=== PATIENT | male | born 1960 | race Caucasian/White ===

== ENCOUNTER 2021-03-31 09:52 | Emergency (ER) | payer MEDICAID, SELFPAY ==
[2021-03-31 09:58] VITALS: BP 130/76; PULSE 70; O2SAT 100
[2021-03-31 10:00] VITALS: BP 172/84; PULSE 57; RESP 16; TEMP 36.3; BMI 20.3
--- NOTE | 2021-03-31 10:07 | ED.ANXIETY ---
HPI - Anxiety General Chief Complaint: General Medical Stated Complaint: HEROIN USE,FEELS ANXIOUS, NO NARCAN GIVEN PER EMS Time Seen by Provider: 03/31/21 10:02 Source: patient and EMS Mode of arrival: EMS Limitations: no limitations History of Present Illness HPI narrative: 60 y/o male with history of opioid use disorder on Suboxone presents to the ER from [facility] reporting not feeling well and feeling anxious after he snorted a bad bag of heroin this morning at 8am. He reports feeling restless, anxious and having intermittent bone pains in his right arm. He last took his Suboxone last night. He reports ongoing IN heroin use 3-4 bags at a time and on those days he does not take his Suboxone. He reports the bag he used this morning was from a new dealer. His GONZALEZ at [facility] was positive for Fentanyl per EMS. MD complaint: anxiety Onset (ago): hour(s) Symptoms: sense of impending doom and muscle cramps Severity: moderate Quality: intermittent Place: home History of similar episodes: Yes Provoking factors: other (fentanyl use) Relieving factors: nothing Exacerbating factors: nothing Associated symptoms: denies other symptoms Related Data Allergies Allergy/AdvReac Type Severity Reaction Status Date / Time No Known Allergies Allergy Verified 03/31/21 10:07 [No Known Allergies*] Review of Systems Review of Systems: Constitutional: No Fever, No Chills ENT/Mouth: No sore throat, No Rhinorrhea, No Swallowing Difficulty Cardiovascular: No Chest Pain, No SOB, No Orthopnea, No Edema Respiratory: No Cough, No Sputum, No Wheezing, No dyspnea Gastrointestinal: No Nausea, No Vomiting, No Diarrhea, No abdominal Pain Genitourinary: No Dysuria, No Urinary Frequency, No Hematuria Musculoskeletal: + joint pain, No Myalgias Skin: No Skin Lesions, No rash Neuro: No Weakness, No Numbness, No Dizziness, No Headache Psych: + Anxiety/Panic, No Depression Heme/Lymph: No Bruising, No Lymphadenopathy Endocrine: No Polyuria, No Polydipsia PMFSH Past Medical History Medical History (Updated 03/31/21 @ 10:40 by ANGIE Gomez) Schizophrenia Social History Social History Advance Directives: No Advance Directives Information Provided: Yes Physical Exam Vital Signs: Vital Signs: Last Vital Signs Temp 97.3 F 03/31/21 10:00 Pulse 57 03/31/21 10:00 Resp 16 03/31/21 10:00 BP 172/84 H 03/31/21 10:00 BMI result Body Mass Index 20.3 Appearance: Alert. Oriented X3. No acute distress. Intermittently falls asleep Eyes: Pupils 2mm, equal and round. ENT: Pharynx with moist mucus membranes, poor dentition. Neck: Normal inspection. Neck supple. CVS: Normal heart rate and rhythm. Pulses normal. Respiratory: No respiratory distress. Breath sounds normal. Abdomen: Soft and nontender. +BS x4 Skin: Skin warm and dry. Normal skin color. Normal skin turgor. No rashes. Extremities: No lower extremity edema. Normal ROM of all 4 extremities. No track ramirez Neuro: Oriented X 3. No motor deficit. No sensory deficit. Ambulates with steady gait Course Course Course Narrative: 60 y/o male with opioid use disorder on Suboxone who currently still uses intranasal heroin presents to the ER after snorting a bag of heroin at 08:00 from a new dealer. His urine test at [facility] showed Fentanyl. He is anxious intermittently pacing. At times he is lethargic and falling asleep. He is protecting his airway with no need for Narcan at this time. Will repeat U tox and monitor closely in the ER. Reevaluation(s) Reevaluation #1: U tox positive for fentanyl and marijuana. He was given IM Toradol for reports of arm pain. He would like to be discharged home. success coach spoke with the patient and he is declining detox at this time. He admitted to taking Suboxone after using intranasal heroin today. He was counseled on proper use of Suboxone and risk of precipitating withdrawal with current use of ongoing heroin. Again he does not want to go to a detox program. He would like to go home. Stable for DC with ongoing management by the [facility] MDM - Anxiety Lab Data Labs: Lab Results 03/31/21 Range/Units 10:57 Urine Opiates Screen Not Detected (Not Detect) Urine Fentanyl Screen POSITIVE H (Not Detect) Ur Barbiturates Screen Not Detected (Not Detect) Ur Phencyclidine Scrn Not Detected (Not Detect) Ur Amphetamines Screen Not Detected (Not Detect) U Benzodiazepines Scrn Not Detected (Not Detect) Urine Cocaine Screen Not Detected (Not Detect) U Marijuana (THC) Screen POSITIVE H (Not Detect) Critical Care Time Critical Care Time Critical Care Time: No Discharge Plan Discharge Clinical Impression: Opioid use disorder Fentanyl adverse reaction Qualifiers: Encounter type: initial encounter Qualified Code(s): T40.415A - Adverse effect of fentanyl or fentanyl analogs, initial encounter Patient Disposition: Home, Self-Care Instructions: Opioid Use Disorder (ED) Additional Instructions: DO NOT USE HEROIN - IT CAN KILL YOU Continue your Suboxone as prescribed
[2021-03-31 11:28] LABS: Amphetamine Screen Urine Not Detected (Not Detect); Barbiturates, Urine Not Detected (Not Detect); Benzodiazepines Screen Urine Not Detected (Not Detect); Cannabinoid Screen Urine POSITIVE (Not Detect); Cocaine Screen Urine Not Detected (Not Detect); Fentanyl, urine POSITIVE (Not Detect); Opiate Screen Urine Not Detected (Not Detect); Phencyclidine Screen Urine Not Detected (Not Detect)
--- NOTE | 2021-03-31 11:31 | MHC.RECOVSUP ---
? Reason for consult:Recovery Support o Current location: [facility] o Identified substance use concern:Heroin - Withdrawal - Seeking ATS (detox) - Support ? Intervention: o Community resources provided o Harm reduction discussion ? Plan: o Referral to CCC o Bed search in progress to o Patient to follow up with [facility] after discharge ? Additional information: Offered patient detox,...pt. refused. Had a harm reduction discussion, and Mat discussion also.
[2021-03-31] MEDS: Ketorolac Tromethamine 30 MG/ML VIAL IM (12:05)
[2021-03-31 12:34] VITALS: BP 154/74; PULSE 60; RESP 16
== END 2021-03-31 12:37 | disposition home or self-care (01) ==
PROVIDERS: Physician Assistant; Emergency Provider Emergency Medicine; PCP Internal Medicine
DX: F11.20 Opioid dependence, uncomplicated (principal); Z71.51 Drug abuse counseling and surveillance of drug abuser; Z79.899 Other long term (current) drug therapy
CPT/HCPCS: 80307; 96372; 99283; 99284; J1885

== ENCOUNTER 2022-12-27 17:09 | Emergency (ER) | payer MEDICAID, SELFPAY ==
[2022-12-27 17:18] VITALS: BP 115/78; BP 138/86; PULSE 134; PULSE 72; RESP 20; TEMP 36.6; O2SAT 97; O2SAT 98
--- NOTE | 2022-12-27 18:12 | PC.NURSE ---
Addendum entered by Alberto Fallon RN 12/27/22 18:24: security called for pattern changer and repairer Original Note: found unresponsive on porch by family. Narcan by [employer], admits snorting 1 bag heroin. unintentional overdose, denies si/hi. a+o x4, denies pain. vss.
--- NOTE | 2022-12-27 18:40 | ED.OVERDOSE ---
HPI - Overdose General Chief Complaint: Overdose Stated Complaint: opioid Od, 4mg narcan given Time Seen by Provider: 12/27/22 17:27 Source: patient Mode of arrival: EMS Limitations: no limitations History of Present Illness HPI Narrative: Patient comes to the emergency room complaining of an accidental overdose. Patient states that he takes methadone, today he used 1 bag of heroin and accidentally overdosed. Bystanders and police department gave the patient intranasal Narcan. Patient on arrival to the emergency room calm, cooperative, awake. Patient states this was an accident, denies suicidal or homicidal ideation. Related Data Allergies Allergy/AdvReac Type Severity Reaction Status Date / Time No Known Allergies Allergy Verified 12/27/22 17:37 [No Known Allergies*] Review of Systems Review of Systems: Constitutional : No Weight loss, No Fever, No Chills, No Night Sweats, No Fatigue, No Malaise ENT/Mouth : No Hearing loss, No Ear Pain, No Nasal Congestion, No Sinus Pain, No Hoarseness, No sore throat, No Rhinorrhea, No Swallowing Difficulty Eyes: No Eye Pain, No Swelling, No Redness, No Foreign Body, No Discharge, No Vision Changes Cardiovascular : No Chest Pain, No SOB, No Dyspnea on Exertion, No Orthopnea, No Edema, No Palpitations Respiratory : No Cough, No Sputum, No Wheezing, No Smoke Exposure, No Dyspnea Gastrointestinal : No Nausea, No Vomiting, No Diarrhea, No Constipation, No abdominal Pain, No Hematochezia, No Melena Genitourinary : no irregular bleeding, No Dysuria, No Urinary Frequency, No Hematuria, No Urinary Incontinence, No Urgency, No Flank Pain, No Urinary Flow Changes, No Hesitancy Musculoskeletal : No joint pain, No Myalgias, No Joint Swelling Skin : No Skin Lesions, No rash Neuro : No Weakness, No Numbness, No Paresthesias, No Loss of Consciousness, No Dizziness, No Headache Psych : No Anxiety/Panic, No Depression, No SI/HI/AH/VH, admits to using heroin today Heme/Lymph: No Bruising, No Bleeding,No Lymphadenopathy Endocrine : No Polyuria, No Polydipsia, No Temperature Intolerance PMFSH Past Medical History Medical History (Updated 12/27/22 @ 18:42 by Promise Valles MD) Heroin overdose Schizophrenia Social History Social History Advance Directives: No Advance Directives Information Provided: No Physical Exam Vital Signs: Vital Signs: Last Vital Signs Temp 97.8 F 12/27/22 17:18 Pulse 72 12/27/22 17:18 Resp 20 12/27/22 17:18 BP 115/78 12/27/22 17:18 Pulse Ox 98 12/27/22 17:18 O2 Del Method Room Air 12/27/22 17:18 BMI result Body Mass Index 20.0 Const: Other: Appearance: Alert. Oriented X3. No acute distress. Eyes: Pupils equal, round and reactive to light. ENT: Pharynx normal. Neck: Normal inspection. Neck supple. No lymph nodes noted. No crepitus CVS: Normal heart rate and rhythm. Pulses normal. Normal S1 and S2 Respiratory: No respiratory distress. Breath sounds normal. No Wheezing. No rales Abdomen: Soft and nontender. No rigidity. No distention. Skin: Skin warm and dry. Normal skin color. Normal skin turgor. Extremities: No lower extremity edema. No Lacerations. No Rash Neuro: Oriented X 3. No motor deficit. No sensory deficit. Moving all extremities. No slurred speech. CN 2 through 12 grossly intact Psych: calm, cooperative, normal affect Medical Decision Making Medical Decision Making MDM Narrative: -patient is awake, alert and oriented x3, no acute distress -patient has normal vitals, oxygen saturation 98% on room air -patient declined CARE/SUDe consult -patient was given home Narcan -after hours of observation, patient feels well, remains asymptomatic. Differential Diagnosis Differential Diagnoses: The differential diagnosis associated with the presentation includes (Having overdose, alcohol intoxication, depression) Admission/Observation Consideration of admission/observation: Escalation of care including admission/observation considered (Admission/observation considered to be seen by the care team consider, patient declined) Critical Care Time Critical Care Time Critical Care Time: Yes Total Critical Care Time: 45 Attestation: I have personally provided critical care time. Time includes review of lab data, radiology results, discussion with consultants, and monitoring for potential decompensation. Intervention performed as documented. Discharge Plan Discharge Clinical Impression: Drug overdose Patient Disposition: Home, Self-Care Instructions: Adult Overdose (ED) Additional Instructions: Please follow-up with your primary care physician tomorrow. If you have any worsening or new symptoms, please return to the emergency room or call 911
[2022-12-27] MEDS: Naloxone HCl Nasal TAKE HOME 4 MG SPRAY 8 MG NOSTRILALT (19:00)
[2022-12-27 19:05] VITALS: PULSE 88; RESP 15; O2SAT 98
--- NOTE | 2022-12-27 19:08 | MHC.RECOVSUP ---
Attempted to meet with pt in ED18H who was here for OD, however pt refused services and left before T/W was able to meet with him.
== END 2022-12-27 19:04 | disposition home or self-care (01) ==
PROVIDERS: Emergency Provider Emergency Medicine
DX: T40.1X1A Poisoning by heroin, accidental (unintentional), initial encounter (principal); Y92.9 Unspecified place or not applicable; Z71.51 Drug abuse counseling and surveillance of drug abuser
CPT/HCPCS: 99284

== ENCOUNTER 2024-05-15 14:23 | Outpatient (REF) | payer MEDICAID, SELFPAY ==
--- NOTE | ~2024-05-15 | XR_ITS ---
EXAMINATION: XR KNEE 4 OR MORE VIEWS LEFT HISTORY: chronic severe left knee pain, unable to weight bear COMPARISON: There are no prior studies available for comparison. FINDINGS: Four views of the left knee are submitted. Osseous mineralization is normal. There is no fracture or dislocation. The joint spaces are preserved. The soft tissues are unremarkable. XR/XR knee LT 4V IMPRESSION: Unremarkable examination of the left knee. Electronically signed by: Asim Rodriguez MD 05/15/2024 03:22 PM MICKIE
[2024-05-15 16:12] LABS: MANUAL DIFF FLAG NO
--- OUTSIDE RECORDS SUMMARY | 2024-05-15 16:24 | XMS_ITS | Encounter Summary ---
Author Organization [facility] Address [address] [place] [address] Care Team Providers Care Sand Shoveler Name Role Phone Unavailable Primary Care Provider Unavailabl e Reason for Referral * Consultation (Urgent) - Pending Review Specialty Diagnoses / Procedures Referred By Zarina t Referred To Contact Orthopaedic Surgery Diagnoses Pain and swelling of left knee Adela Murphy MD [address] [place] [id number] Phone: tel: fax: Referral ID Status Reason Start Date Expiration Date Visits Requested Visits Authorized [id number] Pending Review Specialty Services Required 05/15/2024 05/15/2025 1 1 Encounter Details Date Type Department Care Team (Late st Contact Info) Description 05/15/2024 2:00 PM EST Office Visit [facility] [address] [place] [phone] Adela Murphy MD [address], [place] [phone] Pain and swelling of left knee (Primary Dx) Social History Tobacco Use Types Packs/Day Years Used Date Smoking Tobacco: Never Assessed Sex and Gender Information Value Date Recorded Sex Assigned at Male 02/22/2022 10:35 AM EDT Legal Sex Male 10:35 AM EDT Gender Identity Male 02/22/2022 10:35 AM EDT Sexual Orientation Straight 02/22/2022 10 :35 AM EDT documented as of this encounter Last Filed Vital Signs Vital Sign Reading Time Taken Comments Blood Pressure 112/75 05/15/2024 2:12 PM EST Pulse 91 05/15/2024 2:12 PM EST Temperature 36.6 ??C (97.9 ??F) 05/15/2024 2:12 PM ES T Respiratory Rate 16 05/15/2024 2:12 PM EST Oxygen Saturation 99% 05/15/2024 2:12 PM EST Inhaled Oxygen Concentration - - Weight 59 kg (130 lb) 05/15/2024 2:12 PM EST Height - - Body Mass Index 19.93 04/08/2021 12:12 AM EST documented in this encounter Progress Notes * Patriciaharley Remy - 05/15/2024 2:00 PM EST Subjective Patient ID: Matt Corey is a 63 y.o. male who presents to walk in clinic for left knee pain. Pt reports about 5 months ago he injured his left knee and about 2 months ago he re-injured the same knee, and has tried supportive care without any relief. He reports he has been struggling to bear weight and has been trying to limit movement and support himself on household objects as he tries toget around the house. Denies any wounds or skin breaks. Review of Systems Constitutional: Negative for fever and unexpected weight change. Respiratory: Negative for shortness of breath. Cardiovascular: Negative for chest pain. Gastrointestinal: Negative for abdominal pain. Genitourinary: Negative for difficulty urinating. Musculoskeletal: Positive for arthralgias and joint swelling. Objective Visit Vitals BP 112/75 (BP Location: Right arm, Patient Position: Sitting, BP Cuff Size: Adult) Pulse 91 Temp 97.9 ??F (36.6 ??C) (Temporal) Resp 16 Body mass index is 19.93 kg/m??. Physical Exam Musculoskeletal: Right knee: Normal. Left knee: Deformity (bony deformity, arthritic appearance) and effusion present. Decreased range of motion (cannot bedn past 90 degrees). Tenderness present. Comments: Struggling to bear weight on LLE. Neurological: Mental Status: He is alert. Problem List Items Addressed This Visit Pain and swelling of left knee - Primary Likely arthralgic versus infectious. Differential includes, internal knee injury, arthritic changes, gout, and muscle strain. -ordered XR of right knee 05/15/24 -ordered uric acid, CBC, Sed rate, Lyme disease antibody 05/15/24 -prescribed ibuprofen 800 MG for pain -referred to Orthopedics 05/15/24 -given crutches to assist with weight bearing Relevant Medications ibuprofen 800 MG tablet Other Relevant Orders Uric acid CBC auto differential Sed Rate by Modified Westergren Lyme Disease Ab with Reflex to Blot (IgG, IgM) XR Knee 4+ Views Left Referral to Orthopaedic Surgery -No evidence of acute disease process. Symptoms mild. -Treatment discussed in plan above. -ER precautions discussed. -Seek medical attention for worsening symptoms. I, Sobeida Alberto, am serving as a scribe to document services personally performed by Dr. Nguyen, based on the patient's response to questions by provider and providers statements to me. documented in this encounter Miscellaneous Notes * Assessment & Plan Note - Sobeida Alberto - 05/15/2024 2:10 PM ESTAssociated Problem(s): Pain and swelling of left knee Likely arthralgic versus infectious. Differential includes, internal knee injury, arthritic changes, gout, and muscle strain. -ordered XR of right knee 05/15/24 -ordered uric acid, CBC, Sed rate, Lyme disease antibody 05/15/24 -prescribed ibuprofen 800 MG for pain -referred to Orthopedics 05/15/24 -given crutches to assist with weight bearing documented in this encounter Plan of Treatment Upcoming Encounters Date Type Department Care Team (Late st Contact Info) Description 08/10/2024 10:00 AM EDT Office Visit [facility] [address] [place] [address] Kaci Bueno MD [address] [place] [address] Scheduled Orders Name Type Priority Associated Diagnoses Orde r Schedule Uric acid Lab Routine Pain and swelling of left knee Expected: 05/15/2024 (Approximate), Expires: 05/15/2025 CBC auto differential Lab Routine Pain and swelling of left knee Expected: 05/15/2024 (Approximate), Expires: 05/15/2025 Sed Rate by Modified Westergren Lab Routine Pain and swelling of left knee Expected: 05/15/2024, Expires: 05/15/2025 Lyme Disease Ab with Reflex to Blot (IgG, IgM) Lab Routine Pain and swelling of left knee Expected: 05/15/2024, Expires: 05/15/2025 Scheduled Referrals Name Type Priority Associated Diagnoses Order Schedule Referral to Orthopaedic Surgery Outpatient Referral Urgent Pain and swelling of left knee Expected: 05/15/2024 (Approximate), Expires: 05/15/2025 documented as of this encounter Procedures Procedure Name Priority Date/Time Associated Diagnosis Comments XR KNEE 4+ VIEWS LEFT Routine 05/15/2024 2:24 PM EST Pain and swelling of left knee documented in this encounter Results * XR Knee 4+ Views Left (05/15/2024 2:24 PM EST) Anatomical Region Laterality Modality Lower Extremities, Knee Left Radiogra phic Imaging 05/15/2024 2:24 PM EST Narrative 05/15/2024 3:24 PM EST ?[facility] ?[address] ?[place] [address] ?XRay Report ? Signed ? Patient: Matt Corey ?MR#: [id number] ?? 2 ? : 1960 ?Acct:[id number] ? Age/Sex: 63 / M ?ADM Date: 05/15/24 ? Loc: HO.HHCX ? Attending Dr: Adela Murphy MD ? Ordering Physician: Adela Murphy MD ?? Date of Service: 05/15/24 ?? Procedure(s): XR knee LT 4V ?? Accession Number(s): [id number] ? cc: Adela Murphy MD ? EXAMINATION: ??XR KNEE 4 OR MORE VIEWS LEFT ? HISTORY: chronic severe left knee pain, unable to weight bear ? COMPARISON: There are no prior studies available for comparison. ? FINDINGS: ? Four views of the left knee are submitted. ??Osseous mineralization is ?? normal. ??There is no fracture or dislocation. ??The joint spaces are ?? preserved. ??The soft tissues are unremarkable. ? XR/XR knee LT 4V ?? IMPRESSION: ? Unremarkable examination of the left knee. ? Electronically signed by: ??Asim Rodriguez MD ??05/15/2024 03:22 PM EST ?? RP ? Dictated By: ?Asim Rodriguez MD ? Signed By: ?<Electronically signed by Asim Rodriguez MD in OV> ?05/15/24 1522 ? DD/ 1424 ? TD/TT: 05/15/24 1500 ? Microfilm Operator: ? Procedure Note Donotmichelleter, Image - 05/15/[address] [address] XRay Report Signed Patient: Matt Corey OMR#: [id number] 2 : 1960Acct:[id number] Age/Sex: 63 / MADM Date: 05/15/24 Loc: HO.HHCX Attending Dr: Adela Murphy MD Ordering Physician: Adela Murphy MD Date of Service: 05/15/24 Procedure(s): XR knee LT 4V Accession Number(s): [id number] cc: Adela Murphy MD EXAMINATION: XR KNEE 4 OR MORE VIEWS LEFT HISTORY: chronic severe left knee pain, unable to weight bear COMPARISON: There are no prior studies available for comparison. FINDINGS: Four views of the left knee are submitted. Osseous mineralization is normal. There is no fracture or dislocation. The joint spaces are preserved. The soft tissues are unremarkable. XR/XR knee LT 4V IMPRESSION: Unremarkable examination of the left knee. Electronically signed by: Asim Rodriguez MD 05/15/2024 03:22 PM EST Dictated By: Asim Rodriguez MD Signed By: <Electronically signed by Asim Rodriguez MD in OV> 05/15/24 1522 DD/ 1424 TD/TT: 05/15/24 1500 Microfilm Operator: Adela Murphy MD IMG XR PROCEDURES Final Re sult documented in this encounter Visit Diagnoses Diagnosis Pain and swelling of left knee- Primary documented in this encounter
--- OUTSIDE RECORDS SUMMARY | 2024-05-15 16:24 | XMS_ITS | Encounter Summary ---
Author Organization [facility] Address [address] [place] [address] Care Team Providers Care Stick Inserter Name Role Phone Unavailable Primary Care Provider Unavailabl e Reason for Visit * Reason Onset Date Comments New Patient appt. 05/15/2024 Encounter Details Date Type Department Care Team (Late st Contact Info) Description 05/15/2024 Telephone [facility] [address] [place], [place] [phone] Pérez Kumar MD [address] [place], [place] [phone] New Patient appt. Social History Tobacco Use Types Packs/Day Years Used Date Smoking Tobacco: Never Assessed Sex and Gender Information Value Date Recorded Sex Assigned at Male 02/22/2022 10:35 AM EDT Legal Sex Male 10:35 AM EDT Gender Identity Male 02/22/2022 10:35 AM EDT Sexual Orientation Straight 02/22/2022 10 :35 AM EDT documented as of this encounter Miscellaneous Notes * Telephone Encounter - Santa Scott - 05/15/2024 3:12 PM EST Outgoing call to pt to book DINING ROOM SERVER appt. Patient booked for 08/10/[address] Bueno. No medical conditions reported. Appt reminder sent via text and mail. * Telephone Encounter - Santa Scott - 05/15/2024 3:12 PM EST ----- Message from Adela Murphy MD sent at 05/15/2024 2:09 PM EST ----- Please place on new pt list. documented in this encounter Plan of Treatment Upcoming Encounters Date Type Department Care Team (Late st Contact Info) Description 08/10/2024 10:00 AM EDT Office Visit [facility] [address] [place], [place] [phone] Kaci Bueno MD [address] [place] [address] documented as of this encounter Visit Diagnoses Not on filedocumented in this encounter
[2024-05-15 16:36] LABS: Basophils Percent Auto 0.6 % (0-2); Eosinophils Absolute Auto 0.1 X10*3/uL (0.0-0.4); Eosinophils Percent Auto 1.4 % (0-4); Hemoglobin 13.9 g/dl (14.0-18.0); Imm Gran Abs Auto 0.03 X10*3/uL (0.00-0.03); Imm Gran Pct Auto 0.5 % (0.0-0.4); Lymphocytes Absolute Auto 1.3 X10*3/uL (1.2-4.9); Lymphocytes Percent Auto 20.2 % (20-40); Mean Corpuscular HGB Conc 33.9 g/dl (31.0-36.0); Mean Corpuscular Hemoglobin 33.2 pg (27.0-33.0); Mean Corpuscular Volume 97.9 fL (80.0-98.0); Mean Platelet Volume 11.9 fL (9.4-12.4); Monocytes Absolute Auto 0.5 X10*3/uL (0.1-1.2); Monocytes Percent Auto 7.1 % (2-11); Neutrophils Absolute Auto 4.5 x10*3/uL (2.0-8.3); Neutrophils Percent Auto 70.2 % (45-73); Platelet Count 245 X10*3/uL (160-400); Red Blood Count 4.19 X10*6/uL (4.60-5.80); Red Cell Distribution Width 13.6 % (11.0-16.0); White Blood Count 6.4 X10*3/uL (4.8-10.8)
[2024-05-15 16:52] LABS: Uric Acid 5.9 mg/dL (3.4-7.0)
[2024-05-15 17:41] LABS: Erythrocyte Sedimentation Rate 7 MM/HR (0-15)
== END 2024-05-15 14:24 | disposition home or self-care (01) ==
LOC: HO.HHCX 14:23
PROVIDERS: Visit Provider Family Medicine
DX: M25.562 Pain in left knee (principal); M25.462 Effusion, left knee
CPT/HCPCS: 36415; 73564; 84550; 85025; 85652; 86617; 86618

== ENCOUNTER → 2024-05-15 14:24 | Outpatient (BNV) | payer MEDICAID, SELFPAY | PROVIDERS: Visit Provider Radiology Diagnostic Radiology | DX: M25.562 Pain in left knee (principal) | CPT/HCPCS: 73564 ==

== ENCOUNTER 2024-05-15 14:44 | Outpatient (REF) | payer MEDICAID, SELFPAY | END 2024-05-15 14:45 | disposition home or self-care (01) | LOC: HO.HHCL 14:44 | PROVIDERS: Visit Provider Family Medicine | DX: Z13.89 Encounter for screening for other disorder (principal) ==

== ENCOUNTER 2024-06-27 11:12 | Outpatient (AMB) | payer MEDICAID, SELFPAY ==
--- NOTE | 2024-06-27 11:14 | MHC.OFFVIS ---
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 The patient states that he injured his knee approximately 6 months ago. He twisted his knee and had acute onset of pain when he fell. Since that time his symptoms have gotten worse. He has failed the last 6 weeks of conservative treatment which has included Tylenol, anti-inflammatory medicines, heat, topical creams and a knee brace. He states that his left knee will give out several times per day. He has tried physical therapy exercises which aggravated his pain. Allergies No Known Allergies [No Known Allergies*] Allergy (Verified 06/27/24 11:18) Medication List - Last Reconciled 06/27/24 by Michael Payton MD No Known Home Meds [facility] Medical History (Updated 06/27/24 @ 11:34 by Michael Payton MD) Heroin overdose Schizophrenia Physical Exam Vital Signs: BMI result Body Mass Index 21.9 Const Other: Well-nourished well-developed very friendly male awake alert and oriented x3 in no acute distress Extrem Other: Bilateral lower extremity examination shows good capillary refill, no skin lesions noted, normal sensation light touch Left knee examination shows a minimal effusion, minimal crepitus with range of motion, tenderness along his medial joint line, positive Dillon's test, no instability Results Reviewed Results Reviewed: Standing full weight-bearing x-rays of the patient's left knee show mild diffuse joint space narrowing, no acute bony abnormalities Assessment & Plan Assessment & Plan (1) Tear of medial meniscus of left knee: Code(s): S83.242A - Other tear of medial meniscus, current injury, left knee, initial encounter Category: Medical Plan Mr. Corey presents with progressively worsening left knee pain and mechanical symptoms most likely due to a medial meniscus tear. Thus, I will send the patient for an MRI of his left knee for further evaluation. I will see him back once the MRI is completed to discuss the findings and treatment options. Feel free to call me at any time should questions regarding his orthopedic management arise. I spent 22 minutes in reviewing the patient's records and imaging studies, seeing the patient and documenting in the medical record. Orders: Orders MR knee LT wo con Today S83.242A - Other tear of medial meniscus, current injury, left knee, initial encounter Coding Level of Care Code New Pt Level 3 (15739) Complex EM visit Add On G2211 Diagnoses Tear of medial meniscus of left knee S83.242A
[2024-06-27 11:17] VITALS: BMI 21.9
--- OUTSIDE RECORDS SUMMARY | 2024-06-27 13:29 | XMS_ITS | Clinical Summary ---
Author Organization [employer] Address [address] [place] [address] Care Team Providers Care Coach Wirer Name Role Phone Unavailable Primary Care Provider Unavailabl e Allergies No known active allergies Medications ibuprofen 800 MG tabletIndicatio ns:Pain and swelling of left knee Take 1 tablet (800 mg) by mouth every 8 (eight) hours if needed for moderate pain or fever. 30 tablet 5 06/14/19 25 Active Problems Problem Noted Date Diagnosed Date Pain and swelling of left knee 05/15/2024 Assessment & Plan (05/15/2024 2:10 PM EST): Likely arthralgic versus infectious. Differential includes, internal knee injury, arthritic changes, gout, and muscle strain. -ordered XR of right knee 05/15/24 -ordered uric acid, CBC, Sed rate, Lyme disease antibody 05/15/24 -prescribed ibuprofen 800 MG for pain -referred to Orthopedics 05/15/24 -given crutches to assist with weight bearing Encounters Date Type Department Care Team Description 05/15/2024 2:00 PM EST Office Visit [facility] [address] [place] [address] Adela Murphy MD Pain and swelling of left knee (Primary Dx) 05/15/2024 Telephone [facility] [address] [place] [address] Pérez Kumar MD New Patient appt. from Last 3 Months Social History Tobacco Use Types Packs/Day Years Used Date Smoking Tobacco: Never Assessed Sex and Gender Information Value Date Recorded Sex Assigned at Male 02/22/2022 10:35 AM EDT Legal Sex Male 10:35 AM EDT Gender Identity Male 02/22/2022 10:35 AM EDT Sexual Orientation Straight 02/22/2022 10 :35 AM EDT Last Filed Vital Signs Vital Sign Reading Time Taken Comments Blood Pressure 112/75 05/15/2024 2:12 PM EST Pulse 91 05/15/2024 2:12 PM EST Temperature 36.6 ??C (97.9 ??F) 05/15/2024 2:12 PM ES T Respiratory Rate 16 05/15/2024 2:12 PM EST Oxygen Saturation 99% 05/15/2024 2:12 PM EST Inhaled Oxygen Concentration - - Weight 59 kg (130 lb) 05/15/2024 2:12 PM EST Height 172 cm (5' 7.72 ) 04/08/2021 12:12 AM EST Body Mass Index 19.93 04/08/2021 12:12 AM EST Plan of Treatment Upcoming Encounters Date Type Department Care Team (Late st Contact Info) Description 08/10/2024 10:00 AM EDT Office Visit [facility] [address] [place] [address] Kaci Bueno MD [address] [place] [address] Health Maintenance Due Date Last Done Comments CT Colonography 1960 Colonoscopy 1960 Colorectal Cancer Screening 1960 Depression Screening 1960 FIT DNA/Cologuard 1962 FIT 1962 FOBT 1960 Lipid Panel 1960 SDOH Screening 1960 Sigmoidoscopy 1962 Alcohol/Substance Use Screening 1974 Tobacco Screening 1974 Hepatitis C Screening 1980 Pneumococcal Vaccine: 50+ Years (1 of 1 - PCV) 2012 Zoster Vaccines (1 of 2) 2012 DTaP/Tdap/Td Vaccines (1 - Tdap) 01/15/2019 01/14/2019 COVID-19 Vaccine (1 - 2023-2 5 season) 2023 Influenza Vaccine (#1) 2023 RSV Patients and Patients Aged 60 years or older (1 - 1-dose 75+ series) 2037 HIV Screening Completed 01/04/2020, 06/06/2019 HIB Vaccines Aged Out No longer eligi ble based on patient's age to complete this topic HPV Vaccines Aged Out No longer eligi ble based on patient's age to complete this topic Hepatitis A Vaccines Aged Out No long er eligible based on patient's age to complete this topic Hepatitis B Vaccines Aged Out No long er eligible based on patient's age to complete this topic IPV Vaccines Aged Out No longer eligi ble based on patient's age to complete this topic Meningococcal Vaccine Aged Out No varsha edidre eligible based on patient's age to complete this topic RSV under 20 months Aged Out No longe r eligible based on patient's age to complete this topic Rotavirus Vaccines Aged Out No longer eligible based on patient's age to complete this topic Procedures Procedure Name Priority Date/Time Associated Diagnosis Comments LYME DISEASE AB W/REFL TO BLOT (IGG, IGM) Routine 05/15/2024 2:47 PM EST Pain and swelling of left knee SED RATE BY MODIFIED WESTERGREN Routine 05/15/2024 2:47 PM EST Pain and swelling of left knee CBC WITH AUTO DIFFERENTIAL Routine 05/15/2024 2:47 PM EST Pain and swelling of left knee URIC ACID Routine 05/15/2024 2:47 PM EST Pain and swelling of left knee XR KNEE 4+ VIEWS LEFT Routine 05/15/2024 2:24 PM EST Pain and swelling of left knee HIV 1/2 ANTIGEN/ANTIBODY, FOURTH GENERATION W/RFL Routine 01/04/2020 9:51 AM EDT from Last 3 Months or Most Recently Relevant to Health Maintenance Results * Lyme Disease Ab with Reflex to Blot (IgG, IgM) (05/15/2024 2:47 PM EST) Lyme Antibody Screen <0.90 index [facility] Comment:Index Interpretation ----- < 0.90 Negative 0.90-1.09 Equivocal > 1.09 PositiveAs recommended by the Food and Drug Administration(FDA), all samples with positive or equivocalresults in a Borrelia burgdorferi antibody screenwill be tested using a blot method. Positive orequivocal screening test results should not beinterpreted as truly positive until verified as suchusing a supplemental assay (e.g., B. burgdorferi blot).The screening test and/or blot for B. burgdorferiantibodies may be falsely negative in early stagesof Lyme disease, including the period when erythemamigrans is apparent.THIS TEST WAS PERFORMED AT:[address] [place] [phone] FAJARDO MD Lyme Blot TNP [facility] 05/15/2024 2:47 PM EST 05/15/2024 4:05 PM EST Adela Murphy MD LAB BLOOD ORDERABLES Final Result [facility] [address] [place] [phone] * (ABNORMAL) CBC auto differential (05/15/2024 2:47 PM EST) White Blood Count 6.4 4.8 - 10.8 X10*3/uL [facility] Red Blood Count 4.19(L) 4.60 - 5.80 X10*6/uL [facility] Hemoglobin 13.9(L) 14.0 - 18.0 g/dl [facility] Hematocrit 41.0(L) 42.0 - 52.0 % [facility] Mean Corpuscular Volume 97.9 80.0 - 98.0 fL [facility] Mean Corpuscular Hemoglobin 33.2(H) 27.0 - 33.0 pg [facility] Mean Corpuscular HGB Conc 33.9 31.0 - 36.0 g/dl [facility] Red Cell Distribution Width 13.6 11.0 - 16.0 % [facility] Platelet Count 245 160 - 400 X10*3/uL [facility] Mean Platelet Volume 11.9 9.4 - 12.4 fL [facility] Neutrophils Percent Auto 70.2 45 - 73 % [facility] Imm Gran Pct Auto 0.5(H) 0.0 - 0.4 % [facility] Lymphocytes Percent Auto 20.2 20 - 40 % [facility] Monocytes Percent Auto 7.1 2 - 11 % [facility] Eosinophils Percent Auto 1.4 0 - 4 % [facility] Basophils Percent Auto 0.6 0 - 2 % [facility] NRBC Pct Auto 0.0 0.0 - 0.2 /100WBC [facility] Neutrophils Absolute Auto 4.5 2.0 - 8.3 x10*3/uL [facility] Imm Gran Abs Auto 0.03 0.00 - 0.03 X10*3/uL [facility] Lymphocytes Absolute Auto 1.3 1.2 - 4.9 X10*3/uL [facility] Monocytes Absolute Auto 0.5 0.1 - 1.2 X10*3/uL [facility] Eosinophils Absolute Auto 0.1 0.0 - 0.4 X10*3/uL [facility] Basophils Absolute Auto 0.0 0.0 - 0.2 X10*3/uL [facility] NRBC Abs Auto 0.000 0.0 - 0.012 X10*3/uL [facility] Blood Venous blood specimen / Unknown 05/15/2024 2:47 PM EST 05/15/2024 4:05 PM EST us Adela Murphy MD LAB BLOOD ORDERABLES Final Result [facility] [address] [place] [phone] * Sed Rate by Modified Jose Antonio (05/15/2024 2:47 PM EST) Erythrocyte Sedimentation Rate 7 0 - 15 MM/HR [facility] Comment:Patients with polycy themia and many hemoglobin abnormalitiesmay have depressed sed rates whereas patients with anemiamay have elevated sed rates. Blood Venous blood specimen / Unknown 05/15/2024 2:47 PM EST 05/15/2024 4:05 PM EST Adela Murphy MD LAB BLOOD ORDERABLES Final Result Performing Organization Address [facility] de Phone Number [facility] [address] [place] [phone] * Uric acid (05/15/2024 2:47 PM EST) Uric Acid 5.9 3.4 - 7.0 mg/dL [facility] Blood Venous blood specimen / Unknown 05/15/2024 2:47 PM EST 05/15/2024 4:05 PM EST Adela Murphy MD LAB BLOOD ORDERABLES Final Result Performing Organization Address [facility] de Phone Number [facility] [address] [place] [phone] * XR Knee 4+ Views Left (05/15/2024 2:24 PM EST) Anatomical Region Laterality Modality Lower Extremities, Knee Left Radiogra phic Imaging 05/15/2024 2:24 PM EST Narrative 05/15/2024 3:24 PM EST ?[facility] ?[address] ?[place] [address] ?XRay Report ? Signed ? Patient: Corey,Matt O ?MR#: [id number] ?? 2 ? : 1960 ?Acct:[id number] ? Age/Sex: 63 / M ?ADM Date: 01/21/25 ? Loc: HO.HHCX ? Attending Dr: Adela Murphy MD ? Ordering Physician: Adela Murphy MD ?? Date of Service: 05/15/24 ?? Procedure(s): XR knee LT 4V ?? Accession Number(s): [id number] ? cc: Adela Murphy MD ? EXAMINATION: [...] DD/ 1424 ? TD/TT: 05/15/24 1500 ? Sales Assistants [employer] Salespersons: ? Procedure Note Donotuseinterpreter, Image - 05/15/2024 [place] [address] XRay Report Signed Patient: Matt Corey OMR#: [id number] 2 : 1960Acct:[id number] Age/Sex: 63 / MADM Date: 05/15/24 Loc: HO.HHCX Attending Dr: Adela Murphy MD Ordering Physician: Adela Murphy MD Date of Service: 05/15/24 Procedure(s): XR knee LT 4V Accession Number(s): [id number] cc: Adela Murphy MD EXAMINATION: XR KNEE [...] by: Asim Rodriguez MD 05/15/2024 03:22 PM [facility] Dictated By: Asim Rodriguez MD Signed By: <Electronically signed by Asim Rodriguez MD in OV> 05/15/24 1522 DD/ 1424 TD/TT: 05/15/24 1500 [employer] Ass[employer]ants [employer] Salespers[employer]: us Adela Murphy MD IMG XR PROCEDURES Final Re sult * HIV 1/2 ANTIGEN/ANTIBODY,FOURTH GENERATION W/RFL (01/04/2020 9:51 AM EDT) HIV-1/2 ANTIGEN AND ANTIBODIES, 4TH GENERATION W/ REFLEX NON-REACT [facility] Comment: HIV-1 antigen and HIV-1/HIV-2 antibodies were not detected. There is no laboratory evidence of HIV infection. ?? PLEASE NOTE: This information has been disclosed to you from records whose confidentiality may be protected by state law. ??If your state requires such protection, then the state law prohibits you from making any further disclosure of the information without the specific written consent of the person to whom it pertains, or as otherwise permitted by law. A general authorization for the release of medical or other information is NOT sufficient for this purpose. ? For additional information please refer to http://[employer].RENTISH/faq/RFO618 (This link is being provided for informational/ educational purposes only.) ? The performance of this assay has not been clinically validated in patients less than 2 years old. ?? HIV-1/2 ANTIGEN AND ANTIBODIES, 4TH GENERATION W/ REFLEX NON-REACT [facility]ACT [facility] Comment: HIV-1 antigen and HIV-1/HIV-2 antibodies were not detected. There is no laboratory evidence of HIV infection. ?? PLEASE NOTE: This information has been disclosed to you from records whose confidentiality may be protected by state law. ??If your state requires such protection, then the state law prohibits you from making any further disclosure of the information without the specific written consent of the person to whom it pertains, or as otherwise permitted by law. A general authorization for the release of medical or other information is NOT sufficient for this purpose. ? For additional information please refer to http://[employer].RENTISH/faq/SAF463 (This link is being provided for informational/ educational purposes only.) ? The performance of this assay has not been clinically validated in patients less than 2 years old. ?? 01/04/2020 9:51 AM EDT Madison Mix MD LAB BLOOD ORDERABLES Final Result [facility] [address] from Last 3 Months or Most Recently Relevant to Health Maintenance Insurance [facility] [employer]
== END 2024-06-27 11:34 | disposition home or self-care (01) ==
PROVIDERS: Visit Provider Orthopaedic Surgery
DX: S83.242A Other tear of medial meniscus, current injury, left knee, initial encounter (principal)
CPT/HCPCS: 99203

== ENCOUNTER → 2024-06-27 11:12 | Outpatient (BNVA) | payer MEDICAID, SELFPAY | PROVIDERS: Visit Provider Orthopaedic Surgery | DX: S83.242A Other tear of medial meniscus, current injury, left knee, initial encounter (principal); W19.XXXA Unspecified fall, initial encounter; Y93.9 Activity, unspecified; Y92.9 Unspecified place or not applicable; Y99.9 Unspecified external cause status | CPT/HCPCS: 99202 ==

== ENCOUNTER → 2024-07-14 10:46 | Outpatient (BNV) | payer MEDICAID, SELFPAY | PROVIDERS: Visit Provider Radiology Diagnostic Radiology | DX: M23.222 Derangement of posterior horn of medial meniscus due to old tear or injury, left knee (principal) | CPT/HCPCS: 73721 ==

== ENCOUNTER 2024-07-14 10:58 | Outpatient (REF) | payer MEDICAID, SELFPAY ==
--- NOTE | ~2024-07-14 | MR_ITS ---
EXAMINATION: MRI LEFT KNEE WITHOUT CONTRAST HISTORY: S83.242A - Other tear of medial meniscus, current injury, left knee COMPARISON: Correlation is made with plain films of the left knee dated 05/15/2024. TECHNIQUE: Coronal T1 and fat-suppressed proton density, sagittal proton density and fat-suppressed proton density, and axial fat suppressed T2 weighted MR images of the left knee were obtained. FINDINGS: Bone marrow: Bone marrow signal intensity is mildly heterogeneous. Joint effusion: There is no significant joint effusion. Crandall's cyst: There is no Crandall's cyst. Articular cartilage: Intact Muscles/soft tissues: The visualized muscles demonstrate normal signal intensity. Anterior cruciate ligament: Intact Posterior cruciate ligament: Intact Medial collateral ligament: Intact Lateral collateral ligament: Intact Medial meniscus: There is a horizontally oriented linear focus of increased signal intensity within the posterior horn of the medial meniscus. This contacts the inferior joint surface, consistent with a tear. The anterior horn of the medial meniscus is intact. Lateral meniscus: Intact Flexor mechanism: The popliteus, gastrocnemius, and hamstring tendons are intact. Quadriceps tendon: Intact Patellar tendon: Intact Patellar retinacula: Intact MR/MR knee LT wo con IMPRESSION: Horizontal tear of the posterior horn of the medial meniscus. Electronically signed by: Asim Rodriguez MD 07/16/2024 08:29 AM EDT
--- OUTSIDE RECORDS SUMMARY | 2024-07-14 11:02 | XMS_ITS | Encounter Summary ---
Author Organization [facility] Address [address] [place] [address] Care Team Providers Care Collections Rep Name Role Phone Unavailable Primary Care Provider Unavailabl e Encounter Details Date Type Department Care Team (Late st Contact Info) Description 07/06/2024 Population Health Risk Score [facility] (C[facility]) Department [address] [phone] Provider, Population Health Generic Social History Tobacco Use Types Packs/Day Years Used Date Smoking Tobacco: Never Assessed Sex and Gender Information Value Date Recorded Sex Assigned at Male 02/22/2022 10:35 AM EDT Legal Sex Male 10:35 AM EDT Gender Identity Male 02/22/2022 10:35 AM EDT Sexual Orientation Straight 02/22/2022 10 :35 AM EDT documented as of this encounter Plan of Treatment Upcoming Encounters Date Type Department Care Team (Late st Contact Info) Description 08/10/2024 10:00 AM EDT Office Visit [facility] [address] [place] [address] Kaci Bueno MD [address] [place], [place] [phone] documented as of this encounter Visit Diagnoses Not on filedocumented in this encounter
== END 2024-07-14 10:59 | disposition home or self-care (01) ==
LOC: HO.MRI 10:58
PROVIDERS: Visit Provider Orthopaedic Surgery
DX: S83.242A Other tear of medial meniscus, current injury, left knee, initial encounter (principal)
CPT/HCPCS: 73721

== ENCOUNTER 2024-07-26 13:50 | Outpatient (AMB) | payer MEDICAID, SELFPAY ==
[2024-07-26 13:51] VITALS: BMI 21.9
--- NOTE | 2024-07-26 13:51 | A.OFFVIS_ITS ---
Vital Signs 07/26/24 13:51 Height 5 ft 7 in Weight 140 lb BMI 21.9 Intake Visit Reasons: Left knee pain Intake Note: Matt is a 63 year old male who presents with complaints of left knee pain. He describes his pain as sharp in nature. He did aggravate his left knee approximately 9 months ago. He has failed the last 3 months of conservative treatment which have included Tylenol, anti-inflammatory medicines, a home exercise program and physical therapy exercises. He denies any locking or giving way. He wishes to hold off on surgery if at all possible. Allergies No Known Allergies [No Known Allergies*] Allergy (Verified 07/26/24 13:55) Medication List - Last Reconciled 07/26/24 by Michael Payton MD No Known Home Meds [facility] Medical History (Updated 07/26/24 @ 14:20 by Michael Payton MD) Heroin overdose Schizophrenia Physical Exam Vital Signs: BMI result Body Mass Index 21.9 Const Other: Well-nourished well-developed very friendly male awake alert and oriented x3 in no acute distress Extrem Other: Bilateral lower extremity examination shows good capillary refill, no skin lesions noted, normal sensation light touch Left knee examination shows a minimal effusion, mild crepitus with range of motion, pain with range of motion, no instability Results Reviewed Results Reviewed: Standing full weight-bearing x-rays of the patient's left knee show mild diffuse joint space narrowing, subchondral sclerosis, no acute bony abnormalities Assessment & Plan Assessment & Plan (1) Left knee pain: Code(s): M25.562 - Pain in left knee (2) Osteoarthritis of left knee: Code(s): M17.12 - Unilateral primary osteoarthritis, left knee Category: Medical Plan Mr. Corey presents with left knee pain due to osteoarthritis. I had a lengthy discussion with the patient regarding the treatment options. He wishes to hold off on surgery for as long as possible. I agree with this plan. I will see whether or not the patient's insurance company will cover a viscosupplementation injection such as Durolane. I will see him back once the injection is available. I spent 21 minutes in reviewing the patient's records and imaging studies, seeing the patient and documenting in the medical record. Coding Level of Care Code Est Pt Level 3 (92780) Complex EM visit Add On G2211 Diagnoses Left knee pain M25.562 Osteoarthritis of left knee M17.12
--- OUTSIDE RECORDS SUMMARY | 2024-07-26 15:15 | XMS_ITS | Clinical Summary ---
Author Organization Related Content Database (RCDb) [facility] Address [address] [facility] 7t [place] [address] Care Team Providers Care Mechanical Development Engineer Name Role Phone Unavailable Primary Care Provider Unavailabl e Allergies No known active allergies Active Problems Problem Noted Date Diagnosed Date [...] Encounters Date Type Department Care Team Description 07/06/2024 Population Health Risk Score [facility] (C3) Department [address] [phone] Provider, Population Health Generic 05/15/2024 2:00 PM EST Office Visit [facility] [address] [place] [phone] Adela Murphy MD Pain and swelling of left knee (Primary Dx) 05/15/2024 Telephone [facility] [address] [place] [address] Pérez Kumar MD New Patient appt. from [...] Description 08/10/2024 10:00 AM EDT Office Visit [facility] [address] [place], [place] [phone] Kaci Bueno MD [address] [place], [place] [phone] Health Maintenance Due Date Last Done Comments [...] (1 - Tdap) 01/15/2019 01/14/2019 COVID-19 Vaccine ( - 2023-2 5 season) 2023 Influenza Vaccine [...] topic Meningococcal Vaccine Aged Out No varsha deidre eligible based on patient's age to complete [...] PM EST) Lyme Antibody Screen <0.90 index [facility] Comment:Index Interpretatio n ----- < 0.90 Negative 0.90-1.09 Equivocal > [...] when erythemamigrans is apparent.THIS TEST WAS PERFORMED AT:[facility] [address] [id number] FAJARDO MD Lyme Blot TNP [facility] 05/15/2024 2:47 PM EST 05/15/2024 4:05 PM EST Adela Murphy MD LAB BLOOD ORDERABLES Final Result [facility] [address] [place] [phone] * (ABNORMAL) CBC auto differential (05/15/2024 2:47 PM EST) White Blood Count 6.4 4.8 - 10.8 X10*3/uL [facility] Red Blood Count 4.19(L) 4.60 - 5.80 X10*6/uL [facility] Hemoglobin 13.9(L) 14.0 - 18.0 g/dl [facility] Hematocrit 41.0(L) 42.0 - 52.0 % [facility] Mean Corpuscular Volume 97.9 80.0 - 98.0 fL [facility] Mean Corpuscular Hemoglobin 33.2(H) 27.0 - 33.0 pg [facility] Mean Corpuscular HGB Conc 33.9 31.0 - 36.0 g/dl [facility] Red Cell Distribution Width 13.6 11.0 - 16.0 % [facility] Platelet Count 245 160 - 400 X10*3/uL [facility] Mean Platelet Volume 11.9 9.4 - 12.4 fL [facility] Neutrophils Percent Auto 70.2 45 - 73 % [facility] Imm Gran Pct Auto 0.5(H) 0.0 - 0.4 % [facility] Lymphocytes Percent Auto 20.2 20 - 40 % [facility] Monocytes Percent Auto 7.1 2 - 11 % [facility] Eosinophils Percent Auto 1.4 0 - 4 % [facility] Basophils Percent Auto 0.6 0 - 2 % [facility] NRBC Pct Auto 0.0 0.0 - 0.2 /100WBC [facility] Neutrophils Absolute Auto 4.5 2.0 - 8.3 x10*3/uL [facility] Imm Gran Abs Auto 0.03 0.00 - 0.03 X10*3/uL [facility] Lymphocytes Absolute Auto 1.3 1.2 - 4.9 X10*3/uL [facility] Monocytes Absolute Auto 0.5 0.1 - 1.2 X10*3/uL [facility] Eosinophils Absolute Auto 0.1 0.0 - 0.4 X10*3/uL [facility] Basophils Absolute Auto 0.0 0.0 - 0.2 X10*3/uL [facility] NRBC Abs Auto 0.000 0.0 - 0.012 X10*3/uL [facility] Blood Venous blood specimen / Unknown 05/15/2024 2:47 PM EST 05/15/2024 4:05 PM EST us Adela Murphy MD LAB BLOOD ORDERABLES Final Result [facility] [address] [place] [phone] * Sed Rate by Modified Jose Antonio (05/15/2024 2:47 PM EST) Erythrocyte Sedimentation Rate 7 0 - 15 MM/HR [facility] Comment:Patients with polycy themia and many hemoglobin abnormalitiesmay have depressed sed rates whereas patients with anemiamay have elevated sed rates. Blood Venous blood specimen / Unknown 05/15/2024 2:47 PM EST 05/15/2024 4:05 PM EST Adela Murphy MD LAB BLOOD ORDERABLES Final Result Performing Organization Address [facility] Co de Phone Number [facility] [address] [place] [phone] * Uric acid (05/15/2024 2:47 PM EST) Uric Acid 5.9 3.4 - 7.0 mg/dL [facility] Blood Venous blood specimen / Unknown 05/15/2024 2:47 PM EST 05/15/2024 4:05 PM EST Aedla Murphy MD LAB BLOOD ORDERABLES Final Result Performing Organization Address [facility] de Phone Number [facility] [address] [place] [phone] * XR Knee 4+ Views Left (05/15/2024 2:24 PM EST) Anatomical Region Laterality Modality Lower Extremities, Knee Left Radiogra phic Imaging 05/15/2024 2:24 PM EST Narrative 05/15/2024 3:24 PM EST ?[facility] ?[address] ?[place] [address] ?XRay Report ? Signed ? Patient: Corey,Matt O ?MR#: [id number] ?? 2 ? : 1960 ?Acct:[id number] ? Age/Sex: 63 / M ?ADM Date: 01/21/25 ? Loc: HO.HHCX ? Attending Dr: Adela Murphy MD ? Ordering Physician: Adela Murphy MD ?? Date of Service: 05/15/24 ?? Procedure(s): XR knee LT 4V ?? Accession Number(s): [id number] ? cc: Adela Murphy MD ? EXAMINATION: [...] ??Asim Rodriguez MD ??05/15/2024 03:22 PM EST ? Dictated By: ?Asim Rodriguez MD ? Signed By: ?<Electronically signed by Asim Rodriguez MD in OV> ?05/15/24 1522 ? DD/ 1424 ? TD/TT: 05/15/24 1500 ? Patch Press Operator: ? Procedure Note Donjeetter, Image - 05/15/2024 [place] [address] XRay Report Signed Patient: Matt Corey OMR#: [id number] 2 : 1960Acct:[id number] Age/Sex: 63 / MADM Date: 05/15/24 Loc: HO.HHCX Attending Dr: Adela Murphy MD Ordering Physician: Adela Murphy MD Date of Service: 05/15/24 Procedure(s): XR knee LT 4V Accession Number(s): [id number] cc: Adela Murphy MD EXAMINATION: XR KNEE [...] 05/15/24 1522 DD/ 1424 TD/TT: 05/15/24 1500 Patch Press Operator: Adela Murphy MD IMG XR PROCEDURES [...] ? For additional information please refer to http://INRIX.Activaero/faq/QUW514 (This link is being provided for informational/ [...] ? For additional information please refer to http://INRIX.Activaero/faq/IYC109 (This link is being provided for informational/ educational purposes only.) ? The performance of this assay has not been clinically validated in patients less than 2 years old. ?? 01/04/2020 9:51 AM EDT Madison Mix MD LAB BLOOD ORDERABLES Final Result [facility] [address] from Last 3 Months or Most Recently Relevant to Health Maintenance Insurance [facility] STANDARD
== END 2024-07-26 14:07 | disposition home or self-care (01) ==
LOC: HO.HOS 13:51
PROVIDERS: Visit Provider Orthopaedic Surgery
DX: M25.562 Pain in left knee (principal); M17.12 Unilateral primary osteoarthritis, left knee
CPT/HCPCS: 99213

== ENCOUNTER → 2024-07-26 13:50 | Outpatient (BNVA) | payer MEDICAID, SELFPAY | PROVIDERS: Visit Provider Orthopaedic Surgery | DX: M17.12 Unilateral primary osteoarthritis, left knee (principal) | CPT/HCPCS: 99212 ==

== ENCOUNTER 2024-08-10 10:55 | Outpatient (REF) | payer MEDICAID, SELFPAY ==
--- OUTSIDE RECORDS SUMMARY | 2024-08-10 11:59 | XMS_ITS | Encounter Summary ---
Author Organization [employer] Address [address] 7t [place] [address] Care Team Providers Care Repeat Chief Name Role Phone Unavailable Primary Care Provider Unavailabl e Reason for Visit * Reason Onset Date Comments Chart prep 08/07/2024 Encounter Details Date Type Department Care Team (Late st Contact Info) Description 08/07/2024 Telephone [facility] [address] [place] [address] Flakita De Guzman MA Chart prep Social History Tobacco Use Types Packs/Day Years Used Date Smoking Tobacco: Never Assessed Housing Stability Answer Date Recorded What is your housing situation today? I have kate samuel 08/01/[address] you li ve. Do you have problems with any of the following? None of the above 08/01/2024 Food Insecurity Answer Date Recorded Within the past 12 months, y ou worried that your food would run out before you got money to buy more: Never True 08/01/2024 Within the past 12 months,th e food you bought just didn't last and you didn't have enough money to get more: Never True 12/2024 Transportation Answer Date Recorded In the past 12 months, has l ack of transportation kept you from medical appts, meetings, work or from getting things needed for daily living? No 08/01/2024 Utilities Answer Date Recorded In the past 12 months, has t he electric, gas, oil or water company threatened to shut off services in your home? No 08/01/2024 Internet Access Answer Date Recorded Internet Access Q1 Yes 08/01/2024 Internet Access Q2 Not on file 08/01/2024 Sex and Gender Information Value Date Recorded Sex Assigned at Male 02/22/2022 10:35 AM EDT Legal Sex Male 10:35 AM EDT Gender Identity Male 02/22/2022 10:35 AM EDT Sexual Orientation Straight 02/22/2022 10 :35 AM EDT documented as of this encounter Miscellaneous Notes * Telephone Encounter - Flakita De Guzman [place] - 08/07/2024 1:17 PM EDT Chart Prep Labs: done Images: done Referrals: appointment pending Vaccines due: yes Screenings: colonoscopy Overdue care gaps: PHQ-9 documented in this encounter Plan of Treatment Upcoming Encounters Date Type Department Care Team (Late st Contact Info) Description 11/07/2024 9:00 AM EDT Office Visit [facility] [address] [place] [address] Kaci Bueno MD [address] [place] [address] documented as of this encounter Visit Diagnoses Not on filedocumented in this encounter
--- OUTSIDE RECORDS SUMMARY | 2024-08-10 11:59 | XMS_ITS | Encounter Summary ---
Author Organization [employer] Address [address] 7[address] [place] [address] Care Team Providers Care Contracting Engineer Name Role Phone Kaci Bueno MD Primary Care Provider + Encounter Details Date Type Department Care Team (Latest Contact Info) Description 08/10/2024 Travel Social History Tobacco Use Types Packs/Day Years Used Date Smoking Tobacco: Every Day Cigarettes 1 15.3 Started: 2009 Smokeless Tobacco: Never Alcohol Use Standard Drinks/Week Comments Yes 6 (1 standard drink = 0.6 oz pur e alcohol) oca Depression Answer Date Recorded Patient Health Questionnaire-9 Score 20 08/10/2024 Patient Health Questionnaire-9 Score 20 08/10/2024 Last PHQ-9: Questionnaire Data Not on file 0 08/10/2024 Housing Stability Answer Date Recorded What is your housing situation today? I do not have housing (Staying with others, in a hotel, in a [place], living outside on the street, on a beach, in a car, or in a park 08/10/[address] you li ve. Do you have problems with any of the following? I am not sure 08/10/2024 Food Insecurity Answer Date Recorded Within the [...] from getting things needed for daily living? I am not sure 08/10/2024 Utilities Answer Date Recorded In the past 12 months, has t he electric, gas, oil or water company threatened to shut off services in your home? No 08/01/2024 Depression Answer Date Recorded Patient Health Questionnaire-2 Score 6 08/10/2024 Internet Access Answer Date Recorded Internet Access Q1 No 08/10/2024 Internet Access Q2 I do not want or need it 07/24 Sex and Gender Information Value Date Recorded Sex Assigned at Male 02/22/2022 10:35 AM EDT Legal Sex Male 10:35 AM EDT Gender Identity Male 02/22/2022 10:35 AM EDT Sexual Orientation Straight 02/22/2022 10 :35 AM EDT documented as of this encounter Plan of Treatment Upcoming Encounters Date Type Department Care Team (Late st Contact Info) Description 11/07/2024 9:00 AM EDT Office Visit [facility] [address] [place] [address] Kaci Bueno MD [address] [place] [address] documented as of this encounter Visit Diagnoses Not on filedocumented in this encounter Additional Health Concerns Assessment Noted Time PHQ-9 Depression Total Score: 20 025 9:57 AM EDT documented as of this encounter Care Teams Contracting Engineer Relationship Specialty Start Date End Date Kaci Bueno MD [address] [place] [phone] PCP - General Internal Medicine 08/10/24 documented as of this encounter
--- OUTSIDE RECORDS SUMMARY | 2024-08-10 11:59 | XMS_ITS | Clinical Summary ---
Author Organization [employer] Address [address] [facility] 7t [place] [address] Care Team Providers Care Activities Counselor Name Role Phone Kaci Bueno MD Primary Care Provider + Allergies No known active allergies Active Problems Problem Noted Date Diagnosed Date Primary osteoarthritis of both knees 08/10/2024 Major depression with psychotic features 025 Unsheltered homelessness 08/10/2024 Substance abuse 08/10/2024 Cigarette nicotine dependence without complicati on 08/10/2024 Pain and swelling of left knee 05/15/2024 [...] Encounters Date Type Department Care Team Description 08/10/2024 10:00 AM EDT Office Visit [facility] [address] [place] [address] Kaci Bueno MD Primary osteoarthritis of both knees (Primary Dx); Major depression with psychotic features (CMS/HCC); Unsheltered homelessness; Cigarette nicotine dependence without complication; Substance abuse (CMS/HCC) 08/10/2024 Travel 08/07/2024 Telephone [facility] [address] [place], [place] [phone] Flakita De Guzman MA Chart prep 08/01/2024 Patient Outreach [facility] [address] [place], [place] [phone] Kaci Bueno MD Pre-visit Planning (SDOH screening negative and tobacco screening positive) 07/06/2024 Population Health Risk Score [facility] () Department [address] [place] [phone] Provider, Population Health Generic 05/15/2024 2:00 PM EST Office Visit [facility] [address] [place] [address] Adela Murphy MD Pain and swelling of left knee (Primary Dx) 05/15/2024 Telephone [facility] [address] [place] [address] Pérez Kumar MD New Patient appt. from [...] with others, in a hotel, in a care home, living outside on the street, on a [...] Sign Reading Time Taken Comments Blood Pressure 130/76 08/10/2024 9:34 AM EDT Pulse 66 08/10/2024 9:34 AM EDT Temperature 36.2 ??C (97.2 ??F) 08/10/2024 9:34 AM ED T Respiratory Rate 16 08/10/2024 9:34 AM EDT Oxygen Saturation 99% 08/10/2024 9:34 AM EDT Inhaled Oxygen Concentration - - Weight 54.1 kg (119 lb 6 oz) 08/10/2024 9:34 AM EDT Height 172 cm (5' 7.72 ) 08/10/2024 9:34 AM EDT Body Mass Index 18.3 08/10/2024 9:34 AM EDT Plan of Treatment Upcoming Encounters Date Type Department Care Team (Late st Contact Info) Description 11/07/2024 9:00 AM EDT Office Visit [facility] [address] [place] [address] Kaci Bueno MD [address] [place] [address] Health Maintenance Due Date Last Done Comments CT Colonography 1960 Colonoscopy 1960 Colorectal Cancer Screening 1960 FIT DNA/Cologuard 1962 FIT 1962 FOBT 1960 Lipid Panel 1960 Sigmoidoscopy 1960 Alcohol/Substance Use Screening 1974 Hepatitis C Screening 1980 Pneumococcal Vaccine: 50+ Years (1 of 2 - PCV) 1981 Zoster Vaccines (1 of 2) 2012 DTaP/Tdap/Td Vaccines (1 - Tdap) 01/15/2019 01/14/2019 COVID-19 Vaccine (1 - 2023-2 5 season) 2023 Influenza Vaccine (#1) 2023 Depression Monitoring 02/09/2025 08/10/2024 , 08/10/2024 Depression Screening 08/10/2025 08/10/2024, 08/10/2024 SDOH Screening 08/10/2025 08/10/2024 Tobacco Screening 08/10/2025 08/10/2024 RSV Patients and Patients Aged 60 years [...] Blot (IgG, IgM) (05/15/2024 2:47 PM EST) [facility] Lyme Antibody Screen <0.90 index [facility] Comment:Index Interpretation ----- < 0.90 Negative [...] when erythemamigrans is apparent.THIS TEST WAS PERFORMED AT:[employer] [address] [id number] FAJARDO MD Lyme Blot [facility] 05/15/2024 2:47 PM EST 05/15/2024 4:05 PM EST Adela Murphy MD LAB BLOOD ORDERABLES Final Result [facility] [address] [place] [phone] * (ABNORMAL) CBC auto differential (05/15/2024 2:47 PM EST) [facility] White Blood Count 6.4 4.8 - 10.8 X10*3/uL [facility] Red Blood Count 4.19(L) 4.60 - 5.80 X10*6/uL [facility] Hemoglobin 13.9(L) 14.0 - 18.0 g/dl [facility] Hematocrit 41.0(L) 42.0 - 52.0 % [facility] Mean Corpuscular Volume 97.9 80.0 - 98.0 fL [facility] Mean Corpuscular Hemoglobin 33.2(H) 27.0 - 33.0 pg [facility] Mean Corpuscular HGB Conc 33.9 31.0 - 36.0 g/dl [facility] Red Cell Distribution Width 13.6 11.0 - 16.0 % [facility] Platelet Count 245 160 - 400 X10*3/uL [facility] Mean Platelet Volume 11.9 9.4 - 12.4 fL [facility] Neutrophils Percent Auto 70.2 45 - 73 % [facility] Imm Gran Pct Auto 0.5(H) 0.0 - 0.4 % [facility] Lymphocytes Percent Auto 20.2 20 - 40 % [facility] Monocytes Percent Auto 7.1 2 - 11 % [facility] Eosinophils Percent Auto 1.4 0 - 4 % [facility] Basophils Percent Auto 0.6 0 - 2 % [facility] NRBC Pct Auto 0.0 0.0 - 0.2 /100WBC [facility] Neutrophils Absolute Auto 4.5 2.0 - 8.3 x10*3/uL [facility] Imm Gran Abs Auto 0.03 0.00 - 0.03 X10*3/uL [facility] Lymphocytes Absolute Auto 1.3 1.2 - 4.9 X10*3/uL [facility] Monocytes Absolute Auto 0.5 0.1 - 1.2 X10*3/uL [facility] Eosinophils Absolute Auto 0.1 0.0 - 0.4 X10*3/uL [facility] Basophils Absolute Auto 0.0 0.0 - 0.2 X10*3/uL [facility] NRBC Abs Auto 0.000 0.0 - 0.012 X10*3/uL [facility] Blood Venous blood specimen / Unknown 05/15/2024 2:47 PM EST 05/15/2024 4:05 PM EST Adela Murphy MD LAB BLOOD ORDERABLES Final Result Performing Organization Address [facility] Co de Phone Number [facility] [address] [place] [phone] * Sed Rate by Modified Westergren (05/15/2024 2:47 PM EST) Erythrocyte Sedimentation Rate 7 0 - 15 MM/HR [facility] Comment:Patients with polycy themia and many hemoglobin abnormalitiesmay have depressed sed rates whereas patients with anemiamay have elevated sed rates. Blood Venous blood specimen / Unknown 05/15/2024 2:47 PM EST 05/15/2024 4:05 PM EST Adela Murphy MD LAB BLOOD ORDERABLES Final Result Performing Organization Address [facility] Co de Phone Number [facility] [address] [place] [phone] * Uric acid (05/15/2024 2:47 PM EST) Pathologist [facility] Uric Acid 5.9 3.4 - 7.0 mg/dL [facility] Blood Venous blood specimen / Unknown 05/15/2024 2:47 PM EST 05/15/2024 4:05 PM EST Adela Murphy MD LAB BLOOD ORDERABLES Final Result Performing Organization Address [facility] Co de Phone Number [facility] [address] [place] [phone] * XR Knee 4+ Views Left (05/15/2024 2:24 PM EST) Anatomical Region Laterality Modality Lower Extremities, Knee Left Radiogra phic Imaging 05/15/2024 2:24 PM EST Narrative 05/15/2024 3:24 PM EST ?[facility] [place] [facility] ?[address] ?[place] [address] ?XRay Report ? Signed ? Patient: Corey,Matt O ?MR#: [id number] ?? 2 ? : 1960 ?Acct:[id number] ? Age/Sex: 63 / M ?ADM Date: 05/15/24 ? Loc: HO.HHCX ? Attending Dr: Adela Murphy MD ? Ordering Physician: Adela Murphy MD ?? Date of Service: 05/15/24 ?? Procedure(s): XR knee LT 4V ?? Accession Number(s): [id number] ? cc: Adela Murphy MD ? EXAMINATION: [...] DD/ 1424 ? TD/TT: 05/15/24 1500 ? Corn Picker: ? Procedure Note David, Image - 05/15/[address] [address] XRay Report Signed Patient: Matt Corey OMR#: [id number] 2 : 1960Acct:[id number] Age/Sex: 63 / MADM Date: 05/15/24 Loc: HO.HHCX Attending Dr: Adela Murphy MD Ordering Physician: Adela Murphy MD Date of Service: 05/15/24 Procedure(s): XR knee LT 4V Accession Number(s): [id number] cc: Adela Murphy MD EXAMINATION: XR KNEE [...] Asim Rodriguez MD 05/15/2024 03:22 PM EST RP Dictated By: Asim Rodriguez MD Signed By: <Electronically signed by Asim oRdriguez MD in OV> 05/15/24 1522 DD/ 1424 TD/TT: 05/15/24 1500 Corn Picker: Adela Murphy MD IMG XR PROCEDURES Final Re sult * HIV 1/2 ANTIGEN/ANTIBODY,FOURTH GENERATION W/RFL (01/04/2020 9:51 AM EDT) Pathologist [facility] HIV-1/2 ANTIGEN AND ANTIBODIES, 4TH GENERATION W/ [...] ? For additional information please refer to http://education.Altavoz.Market6/faq/NGE000 (This link is being provided for informational/ [...] ? For additional information please refer to http://SeeWhy.Oceanlinx/faq/PBX680 (This link is being provided for informational/ educational purposes only.) ? The performance of this assay has not been clinically validated in patients less than 2 years old. ?? 01/04/2020 9:51 AM EDT Madison Mix MD LAB BLOOD ORDERABLES Final Result Performing Organization Address City/State/[facility] [place] Phone Number [facility] [address] from Last 3 Months or Most Recently Relevant to Health Maintenance Insurance [facility] STANDARD Care Teams Activities Counselor Relationship Specialty Start Date End Date Kaci Bueno MD [address] [place] [phone] PCP - General Internal Medicine 08/10/24
--- OUTSIDE RECORDS SUMMARY | 2024-08-10 12:00 | XMS_ITS | Encounter Summary ---
Author Organization [employer] Address [address] [facility] 7t [place] [address] Care Team Providers Care Door Core Assembler Name Role Phone Kaci Bueno MD Primary Care Provider + Reason for Visit * Reason Comments New patient Encounter Details Date Type Department Care Team (Latest Contact Info) Description 08/10/2024 10:00 AM EDT Office Visit [facility] [address] [place], [place] [phone] Kaci Bueno MD [address] [place], [place] [phone] Primary osteoarthritis of both knees (Primary Dx); Major depression with psychotic features (CMS/HCC); Unsheltered homelessness; Cigarette nicotine dependence without complication; Substance abuse (CMS/HCC) Social History Tobacco Use Types Packs/Day Years [...] with others, in a hotel, in a usp, living outside on the street, on a [...] Mass Index 18.3 08/10/2024 9:34 AM EDT documented in this encounter Plan of Treatment Upcoming Encounters Date Type Department Care Team (Late st Contact Info) Description 11/07/2024 9:00 AM EDT Office Visit [facility] [address] [place] [address] Kaci Bueno MD [address] [place] [address] Scheduled Orders Name Type Priority Associated Diagnoses Orde r Schedule Comprehensive Metabolic Panel Lab Routine Major depression with psychotic features (CMS/HCC) Expected: 08/10/2024 (Approximate), Expires: 08/10/2025 Lipid Panel with Reflex to Direct LDL Lab Routine Cigarette nicotine dependence without complication Expected: 08/10/2024 (Approximate), Expires: 08/10/2025 Syphilis Screen Lab Routine Substance abuse (CMS/HCC) Expected: 08/10/2024 (Approximate), Expires: 08/10/2025 HIV-1/2 Antigen and Antibodies, Fourth Generation, with Reflexes Lab Routine Substance abuse (CMS/HCC) Expected: 08/10/2024 (Approximate), Expires: 08/10/2025 Hepatitis Panel, General Lab Routine Substance abuse (CMS/HCC) Expected: 08/10/2024 (Approximate), Expires: 08/10/2025 TSH with Reflex to Free T4 Lab Routine Primary osteoarthritis of both knees Major depression with psychotic features (CMS/HCC) Expected: 08/10/2024 (Approximate), Expires: 08/10/2025 CBC auto differential Lab Routine Primary osteoarthritis of both knees Expected: 08/10/2024 (Approximate), Expires: 08/10/2025 documented as of this encounter Visit Diagnoses Diagnosis Primary osteoarthritis of both knees- Primary Major depression with psychotic features (CMS/HCC) Unsheltered homelessness Cigarette nicotine dependence without complication Substance abuse (CMS/HCC) Other, mixed, or unspecified nondependent drug abuse, unspecified documented in this encounter Additional Health Concerns Assessment Noted Time PHQ-9 Depression Total Score: 20 025 9:57 AM EDT documented as of this encounter Care Teams Door Core Assembler Relationship Specialty Start Date End Date Kaci Bueno MD [address] [place] [phone] PCP - General Internal Medicine 08/10/24 documented as of this encounter
[2024-08-10 13:19] LABS: MANUAL DIFF FLAG NO
[2024-08-10 13:29] LABS: Basophils Percent Auto 0.5 % (0-2); Eosinophils Absolute Auto 0.1 X10*3/uL (0.0-0.4); Eosinophils Percent Auto 0.8 % (0-4); Hemoglobin 14.4 g/dl (14.0-18.0); Imm Gran Abs Auto 0.04 X10*3/uL (0.00-0.03); Imm Gran Pct Auto 0.5 % (0.0-0.4); Lymphocytes Absolute Auto 0.8 X10*3/uL (1.2-4.9); Lymphocytes Percent Auto 11.1 % (20-40); Mean Corpuscular HGB Conc 32.7 g/dl (31.0-36.0); Mean Corpuscular Hemoglobin 31.6 pg (27.0-33.0); Mean Corpuscular Volume 96.5 fL (80.0-98.0); Mean Platelet Volume 11.2 fL (9.4-12.4); Monocytes Absolute Auto 0.6 X10*3/uL (0.1-1.2); Monocytes Percent Auto 8.2 % (2-11); Neutrophils Absolute Auto 5.9 x10*3/uL (2.0-8.3); Neutrophils Percent Auto 78.9 % (45-73); Platelet Count 221 X10*3/uL (160-400); Red Blood Count 4.56 X10*6/uL (4.60-5.80); White Blood Count 7.5 X10*3/uL (4.8-10.8)
[2024-08-10 13:57] LABS: Alanine Aminotransferase 22 U/L (0-40); Anion Gap 9 (12-20); Aspartate Amino Transferase 34 U/L (5-37); Bilirubin Total 0.5 mg/dL (0.0-1.0); Blood Urea Nitrogen 12 mg/dL (9-16); Calcium 9.4 mg/dL (8.4-10.2); Carbon Dioxide 32 mmol/L (22-29); Chloride 103 mmol/L (96-108); Cholesterol 180 mg/dL (<200); Estimated Glomerular Filt Rate > 60; Glucose Random 91 mg/dL (60-115); HDL Cholesterol 75 mg/dL (>40); LDL Cholesterol Calculated 90 mg/dL (<100); Potassium 4.4 mmol/L (3.3-5.1); Sodium 140 mmol/L (135-145); Total Protein 6.8 g/dL (6.5-8.0); Triglycerides 75 mg/dL (<150)
[2024-08-10 14:19] LABS: TSH reflex Free T4 0.84 uIU/mL (0.32-4.0)
[2024-08-10 14:50] LABS: Reflex LDLD? No
[2024-08-10 19:47] LABS: Alkaline Phosphatase 82 U/L (39-117)
[2024-08-11 08:07] LABS: Syphilis Screen Nonreactive (Nonreactive)
[2024-08-13 03:35] LABS: HBS Num1 19.99 mIU/mL (0-7.99); HBc Num1 1.17 S/CO (0.00-0.79); HBsAGNum1 0.25 S/CO (0.00-0.99); HIV AB/AG Nonreactive (Nonreactive); HIV Num 1 0.07 S/CO (0.00-0.99); Hepatitis B Surface Antigen Negative (Negative); ~HepC Num1 20.46 S/CO (0.00-0.79); ~Hepatitis B Surface Antibody REACTIVE (Nonreactive); ~Hepatitis C Antibody Reactive (Nonreactive)
[2024-08-13 04:27] LABS: HBc Num2 1.22 S/CO; HBc Num3 1.23 S/CO; Hepatitis B Core Antibody Reactive (Nonreactive)
[2024-08-14 08:39] LABS: Hepatitis A Antibody IgM 0.12 Index (0-0.79); ~Hepatitis A Antibody IgM Nonreactive (Nonreactive)
== END 2024-08-10 10:56 | disposition home or self-care (01) ==
LOC: HO.HHCL 10:55
PROVIDERS: Visit Provider Internal Medicine
DX: M17.0 Bilateral primary osteoarthritis of knee (principal); F17.210 Nicotine dependence, cigarettes, uncomplicated; F19.10 Other psychoactive substance abuse, uncomplicated; F32.3 Major depressive disorder, single episode, severe with psychotic features
CPT/HCPCS: 36415; 80053; 80061; 84443; 85025; 86704; 86706; 86709; 86780; 86803; 87340; 87389

== ENCOUNTER 2024-08-16 12:04 | Outpatient (REF) | payer MEDICAID, SELFPAY ==
--- OUTSIDE RECORDS SUMMARY | 2024-08-16 14:23 | XMS_ITS | Encounter Summary ---
Author Organization [employer] Address 75 [facility] 7t [place] [address] Care Team Providers Care Lye Bath Operator Name Role Phone Kaci Bueno MD Primary Care Provider + Encounter Details Date Type Department Care Team (Late st Contact Info) Description 08/16/2024 Orders Only [facility] [address] [place], [place] [phone] Kaci Bueno MD [address] [place], [place] [phone] HCV antibody positive (Primary Dx) Social History Tobacco Use Types [...] with others, in a hotel, in a intermediate, living outside on the street, on a [...] Description 11/07/2024 9:00 AM EDT Office Visit [facility] [address] [place] [phone] Kaci Bueno MD [address] [place] [phone] Scheduled Orders Name Type Priority Associated Diagnoses Orde r Schedule Hepatitis C Viral RNA, Quantitative, Real-Time PCR Lab Routine HCV antibody positive Expected: 08/16/2024 (Approximate), Expires: 08/16/2025 Alpha-Fetoprotein, Tumor Marker Lab Routine HCV antibody positive Expected: 08/16/2024 (Approximate), Expires: 08/16/2025 documented as of this encounter Visit Diagnoses Diagnosis HCV antibody positive- Primary Other and unspecified nonspecific immunological findings documented in this encounter Additional Health Concerns Assessment Noted Time PHQ-9 Depression Total Score: 20 025 9:57 AM EDT documented as of this encounter Care Teams Lye Bath Operator Relationship Specialty Start Date End Date Kaci Bueno MD [address] [place] [phone] PCP - General Internal Medicine 08/10/24 documented as of this encounter
--- OUTSIDE RECORDS SUMMARY | 2024-08-16 14:23 | XMS_ITS | Clinical Summary ---
Author Organization [employer] Address [address] [facility] [address] 7t [place] [address] Care Team Providers Care Filler Spreader Name Role Phone Kaci Bueno MD Primary Care Provider + Allergies No known active allergies Active Problems Problem Noted Date Diagnosed Date HCV antibody positive 08/16/2024 Primary osteoarthritis of both knees 08/10/2024 Assessment & Plan (08/10/2024 4:21 PM EDT): Improving, not interested in PT at this time. Advised to reconsult as needed Major depression with psychotic features 025 Assessment & Plan (08/10/2024 4:24 PM EDT): Since childhood, no suicidal ideations at this time. Will refer to behavioral health evaluation, he is not interested in medications at this time until he is housed. Patient feels safe when he sleeps at someone's house but not in a long term or on the streets. He is aware of crisis numbers and he is able to reach out for safety to his ex- . Follow-up with me in 4 weeks Unsheltered homelessness 08/10/2024 Assessment & Plan (08/10/2024 4:28 PM EDT): Will refer to [facility] to assist with housing applications, information can be provided to patient's ex- at listed number as patient does not have a phone number at this time. I gave patient information regarding food pantry's and lili on the area Substance abuse 08/10/2024 Assessment & Plan (08/10/2024 4:25 PM EDT): Advised to avoid heroin use, he is aware of that he may be tainted with fentanyl. He declined to have Narcan prescribed to him, he usually uses in front of someone in order to have a place for to keep the Narcan due to unstable housing. Advised to cut down on cigarette and THC as he starts getting involved with mental health provider. Not interested on narcotic replacement therapy at this time Cigarette nicotine dependence without complicati on 08/10/2024 Assessment & Plan (08/10/2024 4:21 PM EDT): Discussed with patient the importance of cutting down smoking, not interested on nicotine replacement therapy at this time. Will attempt to start BH treatment/refer to counseling Pain and swelling of left knee 05/15/2024 [...] Encounters Date Type Department Care Team Description 08/16/2024 Telephone [facility] [address] [place] [phone] Kaci Bueno MD Results 08/16/2024 Orders Only [facility] [address] [place] [phone] Kaci Bueno MD HCV antibody positive (Primary Dx) 08/14/2024 Patient Outreach [facility] [address] [place] [phone] Kaci Bueno MD Care Coordination ([facility] outreach for SDOH housing search-referral completed ) 08/10/2024 10:00 AM EDT Office Visit [facility] [address] [place] [phone] Kaci Bueno MD Primary osteoarthritis of both knees (Primary Dx); Major depression with psychotic features (CMS/HCC); Unsheltered homelessness; Cigarette nicotine dependence without complication; Substance abuse (CMS/HCC) 08/10/2024 Travel 08/07/2024 Telephone [facility] [address] [place] [address] Flakita De Guzman [place] Chart prep 08/01/2024 Patient Outreach [facility] [address] [place] [address] Kaci Bueno MD Pre-visit Planning (SDOH screening negative and tobacco screening positive) 07/06/2024 Population Health Risk Score Community Care [facility] () Department [address] [place] [phone] Provider, Population Health Generic from Last 3 Months Social History Tobacco [...] with others, in a hotel, in a long term, living outside on the street, on a [...] Description 11/07/2024 9:00 AM EDT Office Visit [facility] [address] [place] [address] Kaci Bueno MD [address] [place] [address] Health Maintenance Due Date Last Done Comments CT Colonography 1962 Colonoscopy 1962 Colorectal Cancer Screening 1962 FIT DNA/Cologuard 1962 FIT 1962 FOBT 1962 Sigmoidoscopy 1962 Alcohol/Substance Use Screening 1974 Pneumococcal Vaccine: 50+ Years (1 of 2 - PCV) 1981 Zoster Vaccines (1 of 2) 2012 DTaP/Tdap/Td Vaccines (1 - Tdap) 01/15/2019 01/14/2019 COVID-19 Vaccine (1 - 2023-2 5 season) 2023 Influenza Vaccine (#1) 2023 Depression Screening 08/10/2025 08/10/2024, 08/10/2024 SDOH Screening 08/10/2025 08/10/2024 Tobacco Screening 08/10/2025 08/10/2024 Lipid Panel 08/10/2029 08/10/2024 RSV Patients and Patients Aged 60 years or older (1 - 1-dose 75+ series) 2037 HIV Screening Completed 08/10/2024, 01/04/2020, 06/06/2019 Hepatitis C Screening Completed 08/10/2024 HIB Vaccines Aged Out No longer eligi [...] Procedure Name Priority Date/Time Associated Diagnosis Comments CBC WITH AUTO DIFFERENTIAL Routine 08/10/2024 10:57 AM EDT Primary osteoarthritis of both knees TSH W/REFLEX TO FT4 Routine 08/10/2024 1 0:57 AM EDT Primary osteoarthritis of both knees Major depression with psychotic features (CMS/HCC) HEPATITIS PANEL, GENERAL Routine 08/10/2024 10:57 AM EDT Substance abuse (CMS/HCC) HIV 1/2 ANTIGEN/ANTIBODY, FOURTH GENERATION W/RFL Routine 08/10/2024 10:57 AM EDT Substance abuse (CMS/HCC) SYPHILIS SCREEN Routine 08/10/2024 10:57 AM EDT Substance abuse (CMS/HCC) LIPID PANEL WITH REFLEX TO DIRECT LDL Routine 08/10/2024 10:57 AM EDT Cigarette nicotine dependence without complication COMPREHENSIVE METABOLIC PANEL Routine 08/10/2024 10:57 AM EDT Major depression with psychotic features (CMS/HCC) from Last 3 Months Results * Syphilis Screen (08/10/2024 10:57 AM EDT) Syphilis Screen Nonreactive Nonreactive [facility] Blood 08/10/2024 10:5 7 AM EDT 08/10/2024 1:14 PM EDT us Kaci Bueno MD LAB BLOOD ORDERABLES Fin al Result Performing Organization Address [facility] Co de Phone Number [facility] [address] [place] [phone] * TSH with Reflex to Free T4 (08/10/2024 10:57 AM EDT) TSH reflex Free T4 0.84 0.32 - 4.0 uIU/mL [facility] Blood 08/10/2024 10:5 7 AM EDT 08/10/2024 1:14 PM EDT us Kaci Bueno MD LAB BLOOD ORDERABLES Fin al Result Performing Organization Address [facility] Co de Phone Number [facility] [address] [place] [phone] * Lipid Panel with Reflex to Direct LDL (08/10/2024 10:57 AM EDT) Triglycerides 75 <150 mg/dL [facility] Comment:Desirable Triglyceri de: less than 150 mg/dLBorderline High Triglyceride 150-199 mg/dLHigh Triglyceride: 200-499 mg/dLVery High Triglyceride: greater than or equal to 5OO mg/dL Cholesterol 180 <200 mg/dL [facility] Comment:Desirable Cholestero l: less than 200 mg/dLBorderline High Cholesterol: 200-239 mg/dLHigh Cholesterol: greater than 239 mg/dL LDL Cholesterol Calculated 90 <100 mg/dL [facility] Comment:Desirable LDL: less than 100 mg/dLNear Optimal/Above Optimal LDL: 110- 129 mg/dLBorderline High LDL: 130-159 mg/dLHigh LDL: 160-189 mg/dLVery High LDL: greater than or equal to 190 mg/dL HDL Cholesterol 75 >40 mg/dL [facility] Comment:Desirable HDL: great er than 40 mg/dL Note: This HDL assay may give artificially low results in patients with liver disease. Blood 08/10/2024 10:5 7 AM EDT 08/10/2024 1:14 PM EDT Kaci Bueno MD LAB BLOOD ORDERABLES Fin al Result Performing Organization Address [facility] de Phone Number [facility] [address] [place] [phone] * (ABNORMAL) Hepatitis Panel, General (08/10/2024 10:57 AM EDT) Hepatitis A IgM Nonreactive Nonreactive [facility] Comment:IgM antibodies to ABREU V not detected; does not exclude earlyacute or recovered HAV infection. ~Hepatitis B Surface Antibody REACTIVE Nonreactive [facility] Comment:REACTIVE: > 11.99 mI U/mL Hepatitis B Core Antibody Reactive Nonreactive [facility] Comment:Presumptive evidence of anti-HBc. Hepatitis C Antibody Reactive(A) Nonreactive [facility] Comment:Presumptive evidence of antibodies to HCV. Hepatitis B Surface Ag Negative Negative [facility] Blood 08/10/2024 10:5 7 AM EDT 08/10/2024 1:14 PM EDT Kaci Bueno MD LAB BLOOD ORDERABLES Fin al Result Performing Organization Address [facility] Co de Phone Number [facility] [address] [place] [phone] * (ABNORMAL) CBC auto differential (08/10/2024 10:57 AM EDT) White Blood Count 7.5 4.8 - 10.8 X10*3/uL [facility] Red Blood Count 4.56(L) 4.60 - 5.80 X10*6/uL [facility] Hemoglobin 14.4 14.0 - 18.0 g/dl [facility] Hematocrit 44.0 42.0 - 52.0 % [facility] Mean Corpuscular Volume 96.5 80.0 - 98.0 fL [facility] Mean Corpuscular Hemoglobin 31.6 27.0 - 33.0 pg [facility] Mean Corpuscular HGB Conc 32.7 31.0 - 36.0 g/dl [facility] Red Cell Distribution Width 13.0 11.0 - 16.0 % [facility] Platelet Count 221 160 - 400 X10*3/uL [facility] Mean Platelet Volume 11.2 9.4 - 12.4 fL [facility] Neutrophils Percent Auto 78.9(H) 45 - 73 % [facility] Imm Gran Pct Auto 0.5(H) 0.0 - 0.4 % [facility] Lymphocytes Percent Auto 11.1(L) 20 - 40 % [facility] Monocytes Percent Auto 8.2 2 - 11 % [facility] Eosinophils Percent Auto 0.8 0 - 4 % [facility] Basophils Percent Auto 0.5 0 - 2 % [facility] NRBC Pct Auto 0.0 0.0 - 0.2 /100WBC [facility] Neutrophils Absolute Auto 5.9 2.0 - 8.3 x10*3/uL [facility] Imm Gran Abs Auto 0.04(H) 0.00 - 0.03 X10*3/uL [facility] Lymphocytes Absolute Auto 0.8(L) 1.2 - 4.9 X10*3/uL [facility] Monocytes Absolute Auto 0.6 0.1 - 1.2 X10*3/uL [facility] Eosinophils Absolute Auto 0.1 0.0 - 0.4 X10*3/uL [facility] Basophils Absolute Auto 0.0 0.0 - 0.2 X10*3/uL [facility] NRBC Abs Auto 0.000 0.0 - 0.012 X10*3/uL [facility] Blood Venous blood specimen / Unknown 08/10/2024 10:57 AM EDT 08/10/2024 1:14 PM EDT Kaci Bueno MD LAB BLOOD ORDERABLES Fin al Result Performing Organization Address [facility]/ZIP Co de Phone Number [facility] [address] [place] [phone] * HIV-1/2 Antigen and Antibodies, Fourth Generation, with Reflexes (08/10/2024 10:57 AM EDT) Pathologist [facility] HIV AB/AG Nonreactive Nonreactive [facility] Comment:HIV-1 p24 Ag and/or HIV-1/HIV-2 Ab not detected.A test result that is nonreactive does not exclude thepossibility of exposure to or infection with HIV-1 and/orHIV-2. Nonreactive results in this assay for individualswith prior exposure to HIV-1 and/or HIV-2 may be due toantigen and antibody levels that are below the limit ofdetection of this assay.The [facility] [facility] HIV Ag/Ab Combo assay result andsupplemental assay results should be interpreted inconjunction with the patient's clinical presentation,history and other laboratory results. If the results areinconsistent with clinical evidence, additional testing issuggested to confirm the result. Blood Venous blood specimen / Unknown 08/10/2024 10:57 AM EDT 08/10/2024 1:14 PM EDT Kaci Bueno MD LAB BLOOD ORDERABLES Fin al Result Performing Organization Address [facility]/ZIP Co de Phone Number [facility] [address] [place] [phone] * (ABNORMAL) Comprehensive Metabolic Panel (08/10/2024 10:57 AM EDT) Sodium 140 135 - 145 mmol/L [facility] Potassium 4.4 3.3 - 5.1 mmol/L [facility] Chloride 103 96 - 108 mmol/L [facility] Carbon Dioxide 32(H) 22 - 29 mmol/L [facility] Anion Gap 9(L) 12 - 20 [facility] Urea Nitrogen (BUN) 12 9 - 16 mg/dL [facility] Creatinine, Serum 0.70 0.5 - 1.4 mg/dL [facility] Estimated Glomerular Filt Rate >60 [facility] Comment:Chronic Kidney Disea se: Estimated GFR < 60 mL/min/[id number] Kidney Disease: Estimated GFR < 15 mL/min/1.73m2 Glucose 91 60 - 115 mg/dL [facility] Calcium 9.4 8.4 - 10.2 mg/dL [facility] Bilirubin, Total 0.5 0.0 - 1.0 mg/dL [facility] Aspartate Amino Transferase 34 5 - 37 U/L [facility] Alanine Aminotransferase 22 0 - 40 U/L [facility] Total Protein 6.8 6.5 - 8.0 g/dL [facility] Albumin Level 4.0 3.5 - 5.0 g/dL [facility] Alkaline Phosphatase 82 39 - 117 U/L [facility] Blood Venous blood specimen / Unknown 08/10/2024 10:57 AM EDT 08/10/2024 1:14 PM EDT us Kaci Bueno MD LAB BLOOD ORDERABLES Fin al Result [facility] [address] [place] [phone] from Last 3 Months Insurance [facility] [employer] Care Teams Filler Spreader Relationship Specialty Start Date End Date Kaci Bueno MD [address] [place] [phone] PCP - General Internal Medicine 08/10/24
--- OUTSIDE RECORDS SUMMARY | 2024-08-16 14:23 | XMS_ITS | Encounter Summary ---
Author Organization [employer] Address [address] [facility] 7t [place] [address] Care Team Providers Care Plumber Apprentice Name Role Phone Kaci Bueno MD Primary Care Provider + Reason for Visit * Reason Onset Date Comments Results 08/16/2024 Encounter Details Date Type Department Care Team ([facility] Contact Info) Description 08/16/2024 Telephone [facility] [address] [place], [place] [phone] Kaci Bueno MD [address] [place], [place] [phone] Results Social History Tobacco Use Types Packs/Day Years [...] with others, in a hotel, in a custodial, living outside on the street, on a [...] encounter Miscellaneous Notes * Telephone Encounter - Kj Barone RN - 08/16/2024 10:20 AM EDT TC placed to patient [phone] regarding below message. RN informed patient of lab results on 08/10/2024. RN informed patient that he has dx Hepatitis C. RN inquired if patient had the infection inthe past, pt reported no . Patient denies any symptoms. RN also reported to patient that he is HIVand Hepatitis B are negative. RN advised patient that his PCP ordered labs to see if his hepatitis C infection is active and needs to be treated or otherwise resolved infection. Patient reported to RN that he will go to the Lab today. Pt verbalized understanding. PT to F/U PRN. ----- Message from Kaci Bueno MD sent at 08/16/2024 8:34 AM EDT ----- Labs on 08/10/2024 showed positive hep C antibody, patient did not report known history of HCV. Please contact patient directly or leave a message for him to call us back so that he can have some labsrepeated prior to see me again. Please explain that we need additional information to know if the infection is active and needs to be treated or otherwise is a resolved infection. The rest of the labs including HIV and hepatitis B profile are negative. documented in this encounter Plan of Treatment Upcoming Encounters Date Type Department Care Team (Late st Contact Info) Description 11/07/2024 9:00 AM EDT Office Visit [facility] [address] [place] [address] Kaci Bueno MD [address] [place] [address] documented as of this encounter Visit Diagnoses Not on filedocumented in this encounter Additional Health Concerns Assessment Noted Time PHQ-9 Depression Total Score: 20 025 9:57 AM EDT documented as of this encounter Care Teams Plumber Apprentice Relationship Specialty Start Date End Date Kaci Bueno MD [address] [place] [phone] PCP - General Internal Medicine 08/10/24 documented as of this encounter
--- OUTSIDE RECORDS SUMMARY | 2024-08-16 14:23 | XMS_ITS | Encounter Summary ---
Author Organization [employer] Address [address] [facility] [address] [facility] [address] [facility] [address] [place] [address] Care Team Providers Care Tetryl Screen Operator Name Role Phone Kaci Bueno MD Primary Care Provider + Reason for Visit * Reason Comments Care Coordination [facility] outreach for SDO H housing search-referral completed Encounter Details Date Type Department Care Team (Latest Contact Info) Description 08/14/2024 Patient Outreach [facility] [address] [place] [address] Kaci Bueno MD [address] [place] [address] Care Coordination ([facility] outreach for SDOH housing search-referral completed ) Social History Tobacco Use Types Packs/Day Years [...] AM EDT documented as of this encounter Progress Notes * Collins Okeefe - 08/14/2024 10:26 AM EDT [facility] [place] Okeefe, placed outbound call to patient for assistance with SDOH as a referral was received by the provider. Patient's name and were confirmed. Patient screened positive for the following SDOH housing insecurities. Patient states is staying with her friend but is searching for her own apartment. [facility]W referral patient to the list of application mail out to her address on file. Patient verbalizes understanding, and able to agree with plan to follow up herself. Patient educated on extended clinic hours on Mondays through Wednesdays, and Walk-In Urgent Care Located in [facility]. Patient provided with after-hours line for [facility], , which offer night time triage service and option to transfer to home paraprofessional provider if needed. documented in this encounter Plan of Treatment Upcoming Encounters Date Type Department Care Team ([facility] st Contact Info) Description 11/07/2024 9:00 AM EDT Office Visit [facility] [address] [place] [address] [place] [address] Kaci Bueno MD [address] [place] [address] documented as of this encounter Visit Diagnoses Not on filedocumented in this encounter Additional Health Concerns Assessment Noted Time PHQ-9 Depression Total Score: 20 025 9:57 AM EDT documented as of this encounter Care Teams Tetryl Screen Operator Relationship Specialty Start Date End Date Kaci Bueno MD [address] [place] [id number] PCP - General Internal Medicine 08/10/24 documented as of this encounter
[2024-08-20 15:09] LABS: HCV Log PCR 5.95 Log IU/mL (NOT DETECTED); HepC Viral Load 901000 IU/mL (NOT DETECTED)
[2024-08-27 08:09] LABS: Alpha Fetoprotein 4.8 ng/mL (<6.1)
== END 2024-08-16 12:05 | disposition home or self-care (01) ==
LOC: HO.HHCL 12:04
PROVIDERS: Visit Provider Internal Medicine
DX: R76.8 Other specified abnormal immunological findings in serum (principal)
CPT/HCPCS: 36415; 82105; 87522